=== PATIENT | female | born 1980 | race Caucasian/White ===

== ENCOUNTER 2017-06-25 09:04 | Emergency (ER) | payer OTHER ==
[2017-06-25 09:17] VITALS: BP 119/69; PULSE 72; RESP 16; TEMP 98; O2SAT 99
[2017-06-25] MEDS ORDERED: Sodium Chloride 0.9% 1,000 ML IV STA ×2 (09:29→11:30)
--- NOTE | 2017-06-25 09:41 | ED PDOC ---
HPI:Nausea, Vomiting, Diarrhea Time Seen by Provider: 06/25/17 09:15 Chief Complaint (Nursing): Abdominal Pain Chief Complaint (Provider): Vomiting History Per: Patient History/Exam Limitations: no limitations Onset/Duration Of Symptoms: Days (x 2) Current Symptoms Are (Timing): Still Present Additional History Per: Family (friend) Additional Complaint(s): Erica is a 37 y/o female with no past medical history who presents to the ED complaining of multiple episodes of vomiting since Monday. Patient denies abdominal pain, diarrhea, fever, or symptoms. Her friend states they shared a pot brownie but he has no symptoms. PMD: Dr. Dale Tinoco Past Medical History Reviewed: Historical Data, Nursing Documentation, Vital Signs Vital Signs: Last Vital Signs Temp 98.0 F 06/25/17 09:15 Pulse 72 06/25/17 09:15 Resp 16 06/25/17 09:15 BP 119/69 06/25/17 09:15 Pulse Ox 99 06/25/17 09:15 - Medical History PMH: No Chronic Diseases - Surgical History Surgical History: No Surg Hx - Family History Family History: States: Unknown Family Hx - Social History Current smoker - smoking cessation education provided: No Ex-Smoker (has not smoked in the last 12 months): No Alcohol: None Drugs: Cannabis - Home Medications Home Medications: Ambulatory Orders Medication Instructions Recorded Doxylamine/Pyridoxine HCl (B6) 1 each PO QPM PRN #15 tablet. 06/25/17 [Petra Scott 10-10 mg Tablet] - Allergies Allergies/Adverse Reactions: Allergies Allergy/AdvReac Type Severity Reaction Status Date / Time No Known Allergies Allergy Verified 06/25/17 09:17 Review of Systems ROS Statement: Except As Marked, All Systems Reviewed And Found Negative Constitutional: Negative for: Fever Gastrointestinal: Positive for: Nausea. Negative for: Vomiting, Abdominal Pain , Diarrhea Genitourinary Female: Negative for: Dysuria, Frequency, Incontinence, Hematuria , Vaginal Discharge, Vaginal Bleeding Physical Exam - Reviewed Nursing Documentation Reviewed: Yes Vital Signs Reviewed: Yes - Physical Exam Appears: Positive for: Non-toxic, No Acute Distress Skin: Positive for: Normal Color Eye Exam: Positive for: Normal appearance ENT: Positive for: Other (Dry mucous membranes) Cardiovascular/Chest: Positive for: Regular Rate, Rhythm. Negative for: Murmur Respiratory: Positive for: Normal Breath Sounds. Negative for: Respiratory Distress Gastrointestinal/Abdominal: Positive for: Normal Exam, Bowel Sounds, Soft. Negative for: Tenderness Neurologic/Psych: Positive for: Alert, Oriented - Laboratory Results Result Diagrams: 06/25/17 09:50 06/25/17 09:50 - ECG O2 Sat by Pulse Oximetry: 99 (RA) Pulse Ox Interpretation: Normal Medical Decision Making Medical Decision Making: Time: 9:28 Initial Impression: Gastritis Initial Plan: --CMP --Lipase --Urine Dip --CBC --PTT --Prothrombin Time --Zofran --Urinalysis Time: 9:39 --Urine positive --Zofran switched to Reglan --Dextrose --US OB 1st Trimester Time: 10:27 --Labs reviewed and show urinary tract infection. Macrobid PO ordered. Time: 11:54 US OB 1st TRIMESTER FINDINGS: The examination demonstrates a single live intrauterine gestation. The heart rate is 139 beats per minute. The crown-rump length is 2 mm corresponding to 5 weeks 5 days gestational age. The gestational sac diameter is 19 mm corresponding to 6 weeks 2 days. The composite gestational age by ultrasound examination is 6 weeks 0 days. DIONISIO by ultrasound is 02/18/2018. There is small subchorionic hemorrhage. This measures approximately 1.5 x 0.9 by 1.6 cm. A 3 mm yolk sac is identified. The uterus measures 8.1 x 5.0 x 3.3 cm. There is a posterior subserosal fibroid measuring 3.3 x 2.4 x 3.3 cm. The cervix is long and closed. It measures 4 cm in length. The right ovary measures 2.1 x 3.0 x 3.6 cm. The left ovary measures 2.3 x 4.0 x 3.6 cm. There is a left ovarian cyst measuring 1.5 cm in diameter. Normal flow is demonstrated in both ovaries by Doppler interrogation. IMPRESSION: Single live intrauterine gestation of approximately 6 weeks 0 days. Small subchorionic hemorrhage. heart rate 139. Incidental 3.3 cm posterior subserosal uterine fibroid. Pt feels better, tolerated PO. Scribe Attestation: Documented by Boubacar Car, acting as a scribe for Amy Young MD Provider Scribe Attestation: All medical record entries made by the Scribe were at my direction and personally dictated by me. I have reviewed the chart and agree that the record accurately reflects my personal performance of the history, physical exam, medical decision making, and the department course for this patient. I have also personally directed, reviewed, and agree with the discharge instructions and disposition. Disposition - Clinical Impression Clinical Impression: Hyperemesis gravidarum - Disposition [facility] Disposition: Routine/Home Disposition Time: 12:55 Condition: IMPROVED Prescriptions: Doxylamine/Pyridoxine HCl (B6) [Petra Scott 10-10 mg Tablet] 1 each PO QPM PRN # 15 tablet.dr LONG Reason: Nausea/Vomiting Instructions: Hyperemesis Gravidarum (ED) Forms: [employer] (Panamanian)
[2017-06-25 10:06] LABS: BASO # 0.1 K/uL (0.0-0.2); BASO % 0.6 % (0.0-2.0); EOS % 0.2 % (0.0-4.0); HEMOGLOBIN 13.4 g/dL (12.0-16.0); LYMPH # 2.1 K/uL (1.0-4.3); LYMPH % 18.7 % (20.0-40.0); MEAN CELL VOLUME 93.3 fl (81.0-99.0); MEAN CORPUSCULAR HEMOGLOBIN 31.6 pg (27.0-31.0); MEAN CORPUSCULAR HGB CONC 33.8 g/dL (33.0-37.0); MEAN PLATELET VOLUME 7.6 fl (7.2-11.7); MONO # 0.5 K/uL (0.0-0.8); MONO % 4.2 % (0.0-10.0); NEUT # 8.5 K/uL (1.8-7.0); NEUT % 76.3 % (50.0-75.0); NRBC % 0.1 % (0.0-0.0); RBC 4.23 Mil/uL (3.80-5.20); WHITE BLOOD COUNT 11.1 K/uL (4.8-10.8)
[2017-06-25 10:10] LABS: ALB/GLOB RATIO 1.6 (1.0-2.1); ALBUMIN 4.5 g/dL (3.5-5.0); ALT/SGPT 36 U/L (9-52); AST/SGOT 19 U/L (14-36); BLOOD UREA NITROGEN 8 mg/dl (7-17); CALCIUM 9.3 mg/dL (8.4-10.2); GFR AFRICAN-AMERICAN > 60; GFR NON-AFRICAN AMERICAN > 60; LIPASE 61 U/L (23-300)
[2017-06-25 10:22] LABS: SQUAMOUS EPITHIAL 7 /hpf (0-5); URINE BACTERIA MOD (<OCC); URINE BILIRUBIN NEGATIVE (NEGATIVE); URINE BLOOD NEGATIVE (NEGATIVE); URINE CLARITY CLOUDY (Clear); URINE COLOR YELLOW (YELLOW); URINE GLUCOSE (UA) NEG (Normal); URINE LEUKOCYTE ESTERASE NEG Leu/uL (Negative); URINE NITRATE NEGATIVE (NEGATIVE); URINE PROTEIN 100 mg/dL (NEGATIVE); URINE UROBILINOGEN 0.2-1.0 mg/dL (0.2-1.0)
[2017-06-25 10:27] LABS: INR 1.2 (0.9-1.2); PARTIAL THROMBOPLASTIN TIME 35.4 Seconds (25.6-37.1); PROTHROMBIN TIME 12.9 Seconds (9.8-13.1)
--- NOTE | 2017-06-25 11:56 | US ---
PROCEDURE: Obstetrical ultrasound examination HISTORY: Vomiting COMPARISON: Not available TECHNIQUE: Transvaginal FINDINGS: The examination demonstrates a single live intrauterine gestation. The heart rate is 139 beats per minute. The crown-rump length is 2 mm corresponding to 5 weeks 5 days gestational age. The gestational sac diameter is 19 mm corresponding to 6 weeks 2 days. The composite gestational age by ultrasound examination is 6 weeks 0 days. DIONISIO by ultrasound is 02/18/2018. There is small subchorionic hemorrhage. This measures approximately 1.5 x 0.9 by 1.6 cm. A 3 mm yolk sac is identified. The uterus measures 8.1 x 5.0 x 3.3 cm. There is a posterior subserosal fibroid measuring 3.3 x 2.4 x 3.3 cm. The cervix is long and closed. It measures 4 cm in length. The right ovary measures 2.1 x 3.0 x 3.6 cm. The left ovary measures 2.3 x 4.0 x 3.6 cm. There is a left ovarian cyst measuring 1.5 cm in diameter. Normal flow is demonstrated in both ovaries by Doppler interrogation. IMPRESSION: Single live intrauterine gestation of approximately 6 weeks 0 days. Small subchorionic hemorrhage. heart rate 139. Incidental 3.3 cm posterior subserosal uterine fibroid.
== END 2017-06-25 13:59 | disposition home or self-care (01) ==
LOC: H.ER 09:04
DX: O21.0 Mild hyperemesis gravidarum (principal); O99.89 Other specified diseases and conditions complicating pregnancy, childbirth and the puerperium; O34.11 Maternal care for benign tumor of corpus uteri, first trimester; N83.202 Unspecified ovarian cyst, left side; Z3A.01 Less than 8 weeks gestation of pregnancy; Z87.891 Personal history of nicotine dependence
CPT/HCPCS: 76815; 76817; 80053; 81003; 81025; 83690; 84702; 85025; 85610; 85730; 96361; 96374; 96375; 99282; J2765; J7040; J7042